=== PATIENT | male | born 1950 | race Caucasian/White ===

== ENCOUNTER 2020-09-14 10:48 | Emergency (ER) | payer MEDICARE ==
[~2020-09-14] VITALS: Ht 175.3 cm; Wt 68.0 kg
[~2020-09-14 10:48] MED LIST: OMEP20ER; Omeprazole20 M1 PO; RABE20 PO; SULTRISS PO
[2020-09-14] MEDS ORDERED: IBUP400 PO (13:02)
== END 2020-09-14 13:29 | disposition home or self-care (01) ==
LOC: ER 10:48
DX: M79.675 Pain in left toe(s) (principal); Z79.899 Other long term (current) drug therapy
CPT/HCPCS: 73660; 96372; 99284-25; J1885